=== PATIENT | female | born 2000 | race Two or more races ===

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

== ENCOUNTER 2023-02-25 14:30 | Emergency (ER) | payer MEDICAID ==
[~2023-02-25] VITALS: Ht 162.6 cm; Wt 84.1 kg
[2023-02-25 15:21] LABS: Basophils # (auto) 0.1 10 ^3/uL (0-0.2); Basophils % (auto) 0.9 % (0.0-2.0); Eosinophils # (auto) 0.1 10 ^3/uL (0-0.8); Eosinophils % (auto) 2.3 % (0.0-7.0); Hematocrit 39.4 % (36.0-46.0); Hemoglobin 13.1 g/dL (12.2-16.2); Lymphocytes % (auto) 31.8 % (10.0-50.0); Mean Corpuscular Hemoglobin 29.3 pg (28.0-32.0); Mean Corpuscular Hgb Conc. 33.3 g/dL (32.0-36.0); Mean Corpuscular Volume 87.9 fL (80.0-100.0); Monocytes # (auto) 0.5 10 ^3/uL (0-1.3); Monocytes % (auto) 8.3 % (0.0-12.0); Neutrophils # (auto) 3.6 10 ^3/uL (1.6-8.6); Neutrophils % (auto) 56.7 % (37.0-80.0); Nucleated Red Blood Cells % 0.1 %; Red Blood Cells 4.48 10^6/uL (4.0-5.20); Red Cell Distribution Width 14.2 % (11.8-14.3); White Blood Cell 6.3 10^3/uL (4.4-10.8)
[2023-02-25 15:41] LABS: BUN/Creatinine Ratio 15.7 (10.0-20.0); Potassium 3.9 mmol/L (3.5-5.1)
[2023-02-25 16:07] LABS: Urine Bacteria MOD /hpf (None Seen); Urine Blood Negative /uL (Negative); Urine Hyaline Cast FEW /lpf (0 - 2); Urine Mucus MANY (None Seen); Urine Specific Gravity 1.032 (1.001-1.035); Urine WBC 5 /hpf (0 - 5)
[2023-02-25 16:13] VITALS: BP 115/68
[2023-02-25 16:23] LABS: Amphetamine Screen, Urine NEGATIVE (NEGATIVE); Barbiturate Scree,Urine NEGATIVE (NEGATIVE); Cannabinoid Screen, Urine POSITIVE (NEGATIVE); Cocaine Screen, Urine NEGATIVE (NEGATIVE)
[2023-02-25 16:30] LABS: Benzodiazephine Screen, Urine NEGATIVE (NEGATIVE); Opiate Scree,Urine NEGATIVE (NEGATIVE); Phencyclidine Screen, Urine NEGATIVE (NEGATIVE)
[2023-02-25] MEDS ORDERED: SODIUM CHLORIDE 0.9% 1,000 ML IV ONE (16:30)
[2023-02-25] MEDS ORDERED: ONDANSETRON HCL 4 MG/2 ML VIAL IV ONE (16:30)
[2023-02-25] MEDS ORDERED: cefTRIAXone SOD 1,000 MG VL IM ONE (16:45)
[2023-02-25] MEDS ORDERED: BACDST PO (17:25)
== END 2023-02-25 17:28 | disposition home or self-care (01) ==
LOC: ER 14:30
DX: T67.5XXA Heat exhaustion, unspecified, initial encounter (principal); R42 Dizziness and giddiness; N39.0 Urinary tract infection, site not specified; F12.10 Cannabis abuse, uncomplicated; Z79.899 Other long term (current) drug therapy; X58.XXXA Exposure to other specified factors, initial encounter; Y93.89 Activity, other specified; Y92.89 Other specified places as the place of occurrence of the external cause; Y99.8 Other external cause status
CPT/HCPCS: 36415; 70450; 80048; 80307; 81001; 84484; 85025; 96360; 96372; 99285; J0696; J7030; J2405